=== PATIENT | male | born 1975 | race Caucasian/White ===

== ENCOUNTER 2016-11-20 07:10 | Observation (INO) | payer OTHER ==
[~2016-11-20] VITALS: Ht 190.5 cm; Wt 92.1 kg
[2016-11-20] VITALS (9 sets, daily range): BP systolic 97–136; BP diastolic 63–73; PULSE 66–84; RESP 16–17; O2SAT 97–100
[~2016-11-20 07:10] MED LIST: BACI1CAP6 PO; CHOL10008 PO; Lactated Ringer's 1,000 ML IV ONE; PAPA1TAB10 PO
[2016-11-20] MEDS ORDERED: Lactated Ringer's 500 ML IV PRN (07:34)
[2016-11-20] MEDS ORDERED: Lactated Ringer's 1,000 ML IV SCH (07:34)
--- NOTE | 2016-11-20 07:34 | PCM.HPANE ---
Patient Data Surgeon Admitting Provider: Attending Provider:Gerard Ledbetter MD Primary Care Physician:Tru Kennedy DO Other Provider:Manish Boykin Anesthesia Reason for Visit Diarrhea In Adult Ht/WT & BMI Body Mass Index Allergies Coded Allergies: levofloxacin (Verified Allergy, Unknown, 11/18/16) Past Anesthesia History Anesthesia History: Denies:: Abnormal Airway, Anesthesia Reactions, Difficult Intubation Diabetes History Hx Diabetes?: No MRSA MRSA: No Medications Hypertension Medication: No Home Meds Incl Beta Aimee: No Reported Medications Cholecalciferol (Vitamin D3) (Vitamin D3)1,000 Unit Tab.chew1,000 Unit PO DAILY 11/18/16 Bacillus Coagulans (Probiotic)10 Billion Cell Capsule.dr10 Each PO DAILY 11/18/16 Papaya (Papaya Enzyme)1 Each Tablet1 Each PO DAILY 11/18/16 History History of ENT Problems?: No HEENT History: Denies:: Abnormal Airway Cataracts Difficult Intubation Dysphagia Glaucoma Hearing Problem Sinus Problem TMJ Denture Type: None Teeth Condition: Within Normal Limits Hx of Heart Problems?: No Cardiovascular History: Denies:: AICD Abdominal Aortic Aneurism Atrial Fibrillation Cardiac Surgery Chest Pain Congestive Heart Failure Coronary Artery Disease Edema Heart Murmur Hypertension Irregular Heartbeat Pacemaker Peripheral Vascular Rheumatic Fever Thrombophlebitis Valvular Heart Disease Hx of Respiratory Problem?: No Respiratory History: Denies:: Asthma COPD Chest Surgery Cough Dyspnea Emphysema Hemoptysis Oxygen Administration Pneumonia Pulmonary Embolism Tuberculosis Use of C-PAP Machine Use of Inhalers / NEBS Hx Neurologic Problems?: No Neurological History: Denies:: Alzheimer's Disease CVA Dementia Dizziness Headaches Multiple Sclerosis Parkinson's Disease Peripheral Neuropathy Seizures TIA Hx of GI Problems?: Yes Gastrointestinal History: Positive for:: Heartburn Hx of Problems?: No HX of Peritoneal Dialysis: No Male Hx: Denies:: Prostate Problems Scrotal Mass Testicular Surgery Hx Musculoskeletal Problems?: No Hx of Psycho/Social Problems?: No Hx Surgeries?: No Hx Any Other Health Problems?: No Hx Diabetes: No Stop/Bang Treated for Sleep Apnea?: No Do You Have a CPAP Machine?: No MIGUEL ÁNGEL Risk Assessment: Low Risk, <3 Yes Risk Assessment Category Category 1A: Patient has history of documented sleep apnea, and HAS NOT received any narcotic, sedative or anesthesia administration during this stay. Category 1B: Patient has history of documented sleep apnea, and HAS received any narcotic , sedative or anesthesia administration during this stay Category 2: Patient has SUSPECTED Obstructive Sleep Apnea, and HAS received any narcotic , sedative or anesthesia administration during this stay. Category 3: Patient has SUSPECTED Obstructive Sleep Apnea and HAS NOT received narcotic, sedative or anesthesia administration during this stay. Category 4: Outpatient in Procedural Areas with known sleep apnea or who screen positive for High Risk via the STOP/BANG questionnaire. Exam Exam General Appearance: Alert, Oriented X3, Cooperative, No Acute Distress HEENT/AIRWAY: MP 2 Lungs: Clear to Auscultation, Normal Air Movement Heart: Exam Unremarkable, Regular Rate/Rhythm, No Murmurs/Rubs/Gallops Plan Impression Patient chart reviewed, patient interviewed and anesthestic plan with risks, benefits, and alternatives discussed, and informed consent obtained. ASA Physical Status: ASA2 Mod Systemic Disease Anesthetic Plan: MAC Bene/Risks/Altern/Consents: Yes HP Complete Prior to Induction: Yes Dino Hwoard MD Nov 20, 2016 07:34
[2016-11-20] MEDS ORDERED: fentaNYL-PF 50 mCg/mL 2 mL Inj IVPUSH PRN (07:35)
[2016-11-20] MEDS ORDERED: MetoCLOpramide 5 mg/mL 2 mL Inj IVPUSH PRN (07:35)
[2016-11-20] MEDS ORDERED: EPHEDrine Sulfate 50 mg/mL Inj IVPUSH PRN (07:35)
[2016-11-20] MEDS ORDERED: Ondansetron 2 mg/mL 2 mL Inj IVPUSH PRN (07:35)
[2016-11-20] MEDS ORDERED: HYDROmorphone 1 mg/mL Inj IVPUSH PRN (07:35)
[2016-11-20] MEDS ORDERED: Phenylephrine 10,000 mCg/mL Inj IVPUSH PRN (07:35)
[2016-11-20] MEDS ORDERED: Dexamethasone 4 mg/mL Inj IVPUSH PRN (07:35)
--- NOTE | 2016-11-20 08:20 | PCM.ENDEGD ---
EGD Date of Service: Nov 20, 2016 Physician Gerard Ledbetter MD Pre Procedure Diagnosis: Reflux globus sensation Post Procedure Dx & Findings: Esophagitis gastritis Procedure Esophagogastroduodenoscopy PROCEDURE IN DETAIL: Anesthesia done by anesthesiologist. After proper sedation, Olympus video endoscope was inserted into patient's mouth and esophagus was successfully intubated. Scope introduced esophagus. Esophagus showed normal shiny whitish mucosa consistent with squamous cell component. Z line was at 40 cm from the incisors. Esophagus showed edema and inflammation and erosion consistent with esophagitis. Biopsies of the erosion and inflammation were done. Scope further advanced to the stomach. Stomach showed redness irritation erosion consistent with gastritis. Biopsies are done in these areas. Patient also had 1 mm fundic polyp. This was biopsied.. Cardia fundus body antrum pylorus were all visualized. Retroflexion was done. Stomach was easily inflated and deflatable using air. Scope further advanced to the distal duodenum. Duodenum revealed normal villous structures with normal appearing folds without any mass ulcer erosion. Impression Esophagitis Gastritis Recommendation Prilosec 20 once a day Avoid NSAIDs Presedation Assessment Risks and Benefits Informed consent was obtained from the patient after all risks and benefits including but not limited to drug reaction, infection, pain, bleeding, perforation, as well as alternatives were discussed. Patient monitoring Continuous pulse oximetry, cardiac monitoring, blood pressure monitoring, IV access, and oxygen at 2L per nasal cannula. Complications There were no periprocedural complications identified. Post Procedure Plan Post Procedure Recommendations 1. Restrict activities today. 2. Resume normal activities in the morning. 3. Resume medications. 4. GERD behavioral modification: - Avoid fatty, acidic, spicy, large meals - Do not lie down after meals - Do not eat or drink anything for at least 2 1/2 hours before going to bed at night - Discontinue tobacco and alcohol - Decrease or avoid caffeine - Avoid chocolate and mints - Decrease weight - Avoid aspirin and non steroidal anti-inflammatory agents (NSAID) such as Aleve, Advil, Mobic, Naproxen, Ibuprofen, etc 5. Add proton pump inhibitor. Take 30 minutes before 1st meal of the day. 6. Patient informed of normal post procedure side effects as bloating, drowsiness, blood streaking in the stool 7. If gastric biopsy reveal H.pylori, continue with appropriate treatment 8. If small bowel biopsy reveals celiac, continue with appropriate treatment 9. Please don't hesitate to call me with any questions Gerard Ledbetter MD Nov 20, 2016 08:19
--- NOTE | 2016-11-20 08:41 | PCM.ENDCOL ---
Colonoscopy Date of Service: Nov 20, 2016 Physician Gerard Ledbetter MD Pre Procedure Diagnosis: Diarrhea Post Procedure Dx & Findings: Diverticuli hemorrhoids Procedure Colonoscopy PROCEDURE IN DETAIL: Sedation by anesthesiologist Prep adequate Withdrawal time 10 minutes After unremarkable rectal examination the Olympus video colonoscope was inserted patient's anal canal and was advanced to cecum. Landmarks were identified including the ileocecal valve and appendiceal orifice. Scope was further advanced the terminal ileum. We advanced 10 cm. Visualized colon terminal ileum showed normal healthy mucosa with normal appearing villous structures. Scope was withdrawn systematically. Visualized colonic mucosa showed healthy shiny mucosa with normal healthy-appearing vasculature. Small several diverticula noted in the sigmoid colon. Random biopsies were taken from the cecum to the rectum for workup of diarrhea. In the rectum retroflexion was done which showed hemorrhoids. Anal canal was inspected carefully on the way out and hemorrhoids noted. Impression Normal TI Random biopsies Hemorrhoids Recommendation Repeat colonoscopy when patient turns 48 years old. Diverticular diet Presedation Assessment Risks and Benefits Informed consent was obtained from the patient after all risks and benefits including but not limited to drug reaction, infection, pain, bleeding, perforation, as well as alternatives were discussed. Patient monitoring Continuous pulse oximetry, cardiac monitoring, blood pressure monitoring, IV access, and oxygen at 2L per nasal cannula. Complications There were no periprocedural complications identified. Post Procedure Plan Post Procedure Recommendations 1. Restrict activities today. 2. Resume normal activities in the morning. 3. Resume medications. 4. Patient informed of normal post procedure side effects as bloating, drowsiness, blood streaking in the stool. 5. average risk CRCS. If colon polyps come back as: -Hyperplastic- can repeat colonoscopy in 10 years -Tubular adenoma- repeat colonoscopy in 5 years -Tubulovillous/villous adenoma- repeat colonoscopy in 3 years -If any dysplasia- return to clinic as soon as possible 6. Please don't hesitate to call me with any questions. Gerard Ledbetter MD Nov 20, 2016 08:41
[2016-11-20] MEDS ORDERED: Ketamine 10 mg/mL 20 mL Inj ONE (11:14)
[2016-11-20] MEDS ORDERED: Propofol 10,000 mCg/mL 20 mL Inj ONE (11:14)
--- NOTE | 2016-11-20 11:25 | NUR ---
Admit Patient arrived to room 250-2 via wheelchair from [facility]. Patient ambulated to bed, steady on feet. No IV access, prior order ok'd to leave patient w/no IV access. Patient oriented to room and plan of care. Patient denies nausea or pain.
[2016-11-20] MEDS ORDERED: Alum-Mag Hydrox-Simeth 30 mL Suspension PO PRN (13:05)
[2016-11-20] MEDS ORDERED: Polyethylene Glycol (PEG) 17 Gm Powder PO PRN (13:05)
--- NOTE | 2016-11-20 14:12 | PCM.HPMED ---
Subjective Date of Service Nov 20, 2016 Primary Provider: Admitting Physician: Primary Care Physician: Tru Kennedy DO Attending Physician: Gerard Ledbetter MD Admit Status: 23-Hour Observation Chief Complaint: Chronic abdominal pain and diarrhea History of Present Illness: Abdi Sheth is a 41-year-old male with a history of GERD, depression, and anxiety who presented to [facility] for colonoscopy and EGD to further evaluate his chronic abdominal pain and diarrhea. He presented to the Gastroenterology clinic in August of this year with a five month history of bloating, constant heartburn and a significant globus sensation. Additionally he noted a long standing history of abdominal pain with cramping and diarrhea. He reports a previous evaluation in [facility] where he was told after an EGD and colonoscopy failed to identify a cause for his symptoms that he likely had irritable bowel syndrome. He does have a history of depression and anxiety but he symptoms have worsened and he feels that his mood is stable. Admitted for overnight observation post endoscopy for recovery following anesthesia. Review of Systems: A comprehensive review of systems was conducted with the patient and found to be negative except as above in the History of Present Illness. Allergies Coded Allergies: levofloxacin (Verified Allergy, Unknown, 11/18/16) Home Medications NONE PMH GERD Spontaneous pneumothorax Degenerative disc disease Depression Anxiety Chronic abdominal pain Diarrhea Lateral epicondylitis, right elbow . Surgical History Vasectomy Family History Father- Cardiovascular disease. Social History Hx Alcohol Use: Yes (once every other week) Hx Substance Use: No Hx Tobacco Use: Yes Smoking Status: Former Smoker Living Arrangement: with Family Exam Vital Signs Vital Sign - Last Date Time Temp Pulse Resp B/P Pulse Ox O2 Delivery O2 Flow Rate FiO2 11/20/16 08:40 72 16 136/67 100 Room Air Exam General: Well appearing male in no acute distress. Communicating appropriately. HEENT: Normocephalic, atraumatic. PERRLA, Anicteric sclerae. Mucous membranes moist/pink Lungs: Clear to auscultation bilaterally with no wheezing or crackles Cardiovascular: Regular rate/rhythm. No murmurs Abdomen: Soft, npndistended, nontender, no masses. Hypoactive bowel tones. Extremities: No edema. Neurological: AOx3, no focal deficits. Normal speech Psychiatric: Normal mood and affect. Lab and Diagnostics Additional Diagnostics: Nov 20, 2016- COLONOSCOPY IMPRESSION: Normal TI Random biopsies Hemorrhoids RECOMMENDATION: Repeat colonoscopy when patient turns 48 years old. Diverticular diet Post Procedure Recommendations 1. Restrict activities today. 2. Resume normal activities in the morning. 3. Resume medications. 4. Patient informed of normal post procedure side effects as bloating, drowsiness, blood streaking in the stool. 5. average risk CRCS. If colon polyps come back as: -Hyperplastic- can repeat colonoscopy in 10 years -Tubular adenoma- repeat colonoscopy in 5 years -Tubulovillous/villous adenoma- repeat colonoscopy in 3 years -If any dysplasia- return to clinic as soon as possible 6. Please don't hesitate to call me with any questions. Gerard Ledbetter MD Nov 20, 2016 - EGD IMPRESSION: Esophagitis Gastritis RECOMMENDATION: Prilosec 20 once a day Avoid NSAIDs Post Procedure Recommendations 1. Restrict activities today. 2. Resume normal activities in the morning. 3. Resume medications. 4. GERD behavioral modification: - Avoid fatty, acidic, spicy, large meals - Do not lie down after meals - Do not eat or drink anything for at least 2 1/2 hours before going to bed at night - Discontinue tobacco and alcohol - Decrease or avoid caffeine - Avoid chocolate and mints - Decrease weight - Avoid aspirin and non steroidal anti-inflammatory agents (NSAID) such as Aleve, Advil, Mobic, Naproxen, Ibuprofen, etc 5. Add proton pump inhibitor. Take 30 minutes before 1st meal of the day. 6. Patient informed of normal post procedure side effects as bloating, drowsiness, blood streaking in the stool 7. If gastric biopsy reveal H.pylori, continue with appropriate treatment 8. If small bowel biopsy reveals celiac, continue with appropriate treatment 9. Please don't hesitate to call me with any questions Gerard Ledbetter MD Assessment & Plan 41-year-old male with a history of GERD, depression, and anxiety who presented to [facility] for colonoscopy and EGD for further evaluation of chronic abdominal pain and diarrhea. EGD and colonoscopy significant for gastritis as well as esophagtitis and hemorrhoids. -Restrict activities today, advance as tolerated and resume normal activities in the morning. -Protonix 20mg once a day.Take 30 minutes before 1st meal of the day. -Avoid NSAIDs -GERD behavioral modification: - Avoid fatty, acidic, spicy, large meals - Do not lie down after meals - Do not eat or drink anything for at least 2 1/2 hours before going to bed at night - Discontinue tobacco and alcohol - Decrease or avoid caffeine - Avoid chocolate and mints - Decrease weight - Avoid aspirin and non steroidal anti-inflammatory agents (NSAID) such as Aleve, Advil, Mobic, Naproxen, Ibuprofen, etc -If gastric biopsy reveal H.pylori, continue with appropriate treatment -If small bowel biopsy reveals celiac, continue with appropriate treatment -Repeat colonoscopy when patient turns 48 years old. Disposition: Patient admitted for observation following uncomplicated EGD and colonoscopy for post procedure monitoring following anesthesia. Will likely discharge tomorrow. Advance diet and activity as tolerated. Pain Evaluation: Adequate Pain Control Resuscitation Status: CPR: Attempt Resuscitation Yuko Crocker DO Nov 20, 2016 08:46 Yuko Crocker DO Nov 20, 2016 08:46 Yuko Crocker DO Nov 20, 2016 08:46
[2016-11-21 01:24] VITALS: BP 118/69; PULSE 68; RESP 17; O2SAT 97
[2016-11-21 06:12] VITALS: BP 120/64; PULSE 77; RESP 17; O2SAT 97
--- NOTE | 2016-11-21 06:17 | NUR ---
Shift Note Pt. stable, denies any discomfort this shift, call light in reach at all times, hourly checks, will continue to monitor.
--- NOTE | 2016-11-21 07:58 | NUR ---
Social Work: Screening D: EMR reviewed. Pt is a 41 y/o male admitted [facility] - no readmit risk score assigned - for adult diarrhea per H&P. Pt's insurance is [employer] and PCP is Tru Kennedy DO. Pt's NOK is mother Linsey Maya. Pt lives at home with family in [place]. Pt does not screen in for full assessment. SW will discuss pt in multidisciplinary rounds to address any potential SW discharge planning needs. SW will to follow-up with pt regarding DPOA/advanced directive ppw and determine transportation plan at discharge. SW will continue to follow. A: Per EMR, pt who is independent at baseline and has capacity for self-care. P: Pt likely to discharge home via POV. SW will to follow-up with pt regarding DPOA/advanced directive ppw and determine transportation plan at discharge. SW will continue to follow. AMINATA Mai
--- NOTE | 2016-11-21 08:55 | PCM.DIMED ---
Discharge Instructions Date of Service Nov 21, 2016 Dates of Hospitalization Nov 20, 2016 at 09:53 Discharge Diagnosis Discharge Diagnosis Gastritis and esophagitis (Inflammation of stomach lining as well as the lining in your esophagus) Hemorrhoids Medication Instructions Additional med instructions Start taking Protonix (pantoprazole) 20mg by mouth once daily Patient Instructions Patient Instructions -Protonix 20mg once a day.Take 30 minutes before 1st meal of the day. -Lifestyle modifications to help prevent gastroesophageal reflux: - Avoid fatty, acidic, spicy, large meals - Do not lie down after meals - Do not eat or drink anything for at least 2 1/2 hours before going to bed at night - Discontinue tobacco and alcohol - Decrease or avoid caffeine - Avoid chocolate and mints - Avoid aspirin and non steroidal anti-inflammatory agents (NSAID) such as Aleve, Advil, Mobic, Naproxen, Ibuprofen, etc -Repeat colonoscopy at age 48. -Followup with Dr. Ledbetter with GI in 6-8 weeks Contact your doctor if: -You have belly pain that gets worse or doesn't go away -You vomit blood or have black bowel movements -You are losing weight (without trying to) . Follow-up Provider: Tru Kennedy DO Follow-up with PCP in: 4 weeks Provider: Gerard Ledbetter MD Follow-up in: 6 weeks Yuko Crocker DO Nov 21, 2016 08:55
[2016-11-21] MEDS ORDERED: PANT40TA2 PO (08:56)
--- NOTE | 2016-11-21 09:26 | PCM.ANEP1 ---
Post Anesthesia PACU Phase 1 Assessment Vital Signs Vital Signs Date Time Temp Pulse Resp B/P Pulse Ox O2 Delivery O2 Flow Rate FiO2 11/21/16 06:12 36.7 77 17 120/64 97 Room Air Anesthetic Administered: MAC Level of Alertness: Awake, talking MESSER's with Equal Strength: No Pain: No Nausea or Vomiting: Yes CV Function & Hydration Stable: Yes Airway Device: none Lungs: Clear to Auscultation, Normal Air Movement Dermatome Level: Full Sensation PACU Phase 2 Assessment Complications: No Follow up Care: No Patient Instructions Provided: Yes Dino Howard MD Nov 21, 2016 09:26
--- NOTE | 2016-11-21 10:56 | PCM.DC.MED ---
Discharge Summary Date of Service Nov 21, 2016 Dates of Hospitalization Date of Hospital Admission Nov 20, 2016 at 09:53 Date of Discharge: Nov 21, 2016 Providers: Admitting Physician: Gerard Ledbetter MD Primary Care Physician: Tru Kennedy DO Attending Physician: Gerard Ledbetter MD Diagnosis at Time of Discharge Diagnosis at Time of Discharge Gastritis and esophagitis Hemorrhoids Procedures Other Diagnostics Nov 20, 2016- COLONOSCOPY IMPRESSION: Normal TI Random biopsies Hemorrhoids RECOMMENDATION: Repeat colonoscopy when patient turns 48 years old. Diverticular diet Post Procedure Recommendations 1. Restrict activities today. 2. Resume normal activities in the morning. 3. Resume medications. 4. Patient informed of normal post procedure side effects as bloating, drowsiness, blood streaking in the stool. 5. average risk CRCS. If colon polyps come back as: -Hyperplastic- can repeat colonoscopy in 10 years -Tubular adenoma- repeat colonoscopy in 5 years -Tubulovillous/villous adenoma- repeat colonoscopy in 3 years -If any dysplasia- return to clinic as soon as possible 6. Please don't hesitate to call me with any questions. Gerard Ledbetter MD Nov 20, 2016 - EGD IMPRESSION: Esophagitis Gastritis RECOMMENDATION: Prilosec 20 once a day Avoid NSAIDs Post Procedure Recommendations 1. Restrict activities today. 2. Resume normal activities in the morning. 3. Resume medications. 4. GERD behavioral modification: - Avoid fatty, acidic, spicy, large meals - Do not lie down after meals - Do not eat or drink anything for at least 2 1/2 hours before going to bed at night - Discontinue tobacco and alcohol - Decrease or avoid caffeine - Avoid chocolate and mints - Decrease weight - Avoid aspirin and non steroidal anti-inflammatory agents (NSAID) such as Aleve, Advil, Mobic, Naproxen, Ibuprofen, etc 5. Add proton pump inhibitor. Take 30 minutes before 1st meal of the day. 6. Patient informed of normal post procedure side effects as bloating, drowsiness, blood streaking in the stool 7. If gastric biopsy reveal H.pylori, continue with appropriate treatment 8. If small bowel biopsy reveals celiac, continue with appropriate treatment 9. Please don't hesitate to call me with any questions Gerard Ledbetter MD Brief History Per admission history and physical. November 20, 2016 Abdi Sheth is a 41-year-old male with a history of GERD, depression, and anxiety who presented to [facility] for colonoscopy and EGD to further evaluate his chronic abdominal pain and diarrhea. He presented to the Gastroenterology clinic in August of this year with a five month history of bloating, constant heartburn and a significant globus sensation. Additionally he noted a long standing history of abdominal pain with cramping and diarrhea. He reports a previous evaluation in [facility] where he was told after an EGD and colonoscopy failed to identify a cause for his symptoms that he likely had irritable bowel syndrome. He does have a history of depression and anxiety but he symptoms have worsened and he feels that his mood is stable. Admitted for overnight observation post endoscopy for recovery following anesthesia. Hospital Course 41-year-old male with a history of GERD, depression, and anxiety who presented to [facility] for colonoscopy and EGD for further evaluation of chronic abdominal pain and diarrhea. EGD and colonoscopy significant for gastritis as well as esophagtitis and hemorrhoids. -Patient was admitted to the [facility] for observation following EGD and colonoscopy which required anesthesia. His activities and diet were advanced as tolerated and he was back to pre-admission baseline at the time of discharge. Exam Vital Signs (Last) Date Time Temp Pulse Resp B/P Pulse Ox O2 Delivery O2 Flow Rate FiO2 11/21/16 06:12 36.7 77 17 120/64 97 Room Air Exam General: Well appearing male in no acute distress. Communicating appropriately. HEENT: Normocephalic, atraumatic. PERRLA, Anicteric sclerae. Mucous membranes moist/pink Lungs: Clear to auscultation bilaterally with no wheezing or crackles Cardiovascular: Regular rate/rhythm. No murmurs Abdomen: Soft, npndistended, nontender, no masses. Hypoactive bowel tones. Extremities: No edema. Neurological: AOx3, no focal deficits. Normal speech Psychiatric: Normal mood and affect. Discharge Medications Discharge Medications Bacillus Coagulans (Probiotic) 10 Billion Cell Capsule.dr 10 EACH PO DAILY ( Reported) Cholecalciferol (Vitamin D3) (Vitamin D3) 1,000 Unit Tab.chew 1,000 UNIT PO DAILY (Reported) Pantoprazole DR (Protonix) 40 Mg Tablet 20 MG PO DAILY Prescribed by: MILEY GREWAL DO Papaya (Papaya Enzyme) 1 Each Tablet 1 EACH PO DAILY (Reported) Additional med instructions Start taking Protonix (pantoprazole) 20mg by mouth once daily Followup Plan Disposition: Patient discharged home in stable condition following EGD and colonoscopy. Patient Instructions -Protonix 20mg once a day.Take 30 minutes before 1st meal of the day. -Lifestyle modifications to help prevent gastroesophageal reflux: - Avoid fatty, acidic, spicy, large meals - Do not lie down after meals - Do not eat or drink anything for at least 2 1/2 hours before going to bed at night - Discontinue tobacco and alcohol - Decrease or avoid caffeine - Avoid chocolate and mints - Avoid aspirin and non steroidal anti-inflammatory agents (NSAID) such as Aleve, Advil, Mobic, Naproxen, Ibuprofen, etc -Repeat colonoscopy at age 48. -Followup with Dr. Ledbetter with GI in 6-8 weeks Contact your doctor if: -You have belly pain that gets worse or doesn't go away -You vomit blood or have black bowel movements -You are losing weight (without trying to) . Follow-up Provider: Tru Kennedy DO Follow-up with PCP in: 4 weeks Provider: Gerard Ledbetter MD Follow-up in: 6 weeks copies to: Tru Kennedy DO Miley Grewal DO Nov 21, 2016 08:57
--- NOTE | 2016-11-21 11:12 | NUR ---
Social Work: Readiness for Discharge/Multidisciplinary Rounds D: EMR reviewed. Pt is on day 1 of hospitalization. Pt discussed in multidisciplinary rounds - per MD, pt is medically stable for discharge home via POV. SW met with pt and provided DPOA/advanced directive ppw and instruction booklet. SW encouraged pt to provide a copy to the hospital once complete. No SW need identified. No MD orders received. SW will continue to follow. A: Pt who is independent at baseline. P: SW met with pt at bedside and confirmed he will provide transport home today via POV. SW discussed discharge plan and confirmed pt feels safe with discharge plan and has no discharge needs. SW will continue to follow. AMINATA Mai
--- NOTE | 2016-11-21 11:15 | NUR ---
Social Work: Discharge D: EMR reviewed. Pt is on day 1 of hospitalization. Pt discussed in multidisciplinary rounds - per MD, pt is medically stable for discharge home via POV. No SW need identified. No MD orders received. Pt discharged home via POV - RN helped pt ambulate to car. No discharge needs identified. A: Pt who is independent at baseline. P: Pt discharged home via POV. SW discussed discharge plan and confirmed pt feels safe with discharge plan and has no discharge needs. AMINATA Mai
--- NOTE | 2016-11-21 11:17 | NUR ---
Discharge Patient ambulated off floor at 1115, declined wheelchair. All discharge information discussed with patient including medications and follow up appointments. All belongings left with patient.
--- NOTE | 2016-11-26 11:06 | PATH ---
SURGICAL PATHOLOGY Attending Physician:Gerard Ledbetter M.D. CASE STATUS: Signed Out PATIENT NAME: BECKI ESTRADA PID: [id number] : 1975 DATE COLLECTED:11/20/2016 21:52 SPECIMEN: 1: Esophagus, Biopsy 2: Stomach, Polyp, Biopsy 3: Gastric, Biopsy 4: Colon, Biopsy CLINICAL HISTORY: 1). ESOPHAGUS BIOPSY 2). FUNDAL POLYP BIOPSY 3). GASTRIC BIOPSY, RULE OUT H.PYLORI 4). RANDOM COLON BIOPSY FINAL DIAGNOSIS: 1.ESOPHAGUS, BIOPSY: SQUAMOCOLUMNAR JUNCTIONAL MUCOSA WITH CHRONIC ACTIVE INFLAMMATION OF THE GLANDULAR MUCOSA. Negative for intestinal metaplasia. Negative for dysplasia and malignancy. 2.FUNDAL POLYP, BIOPSY: GASTRIC BODY-TYPE MUCOSA WITH FEW DIALTED GLANDS CONSISTENT WITH FUNDIC GLAND POLYP. Negative for intestinal metaplasia. Negative for dysplasia and malignancy. Negative for Helicobacter pylori by immunohistochemistry. 3.GASTRIC BIOPSY: GASTRIC BODY-TYPE AND ANTRAL-TYPE MUCOSA WITH CHRONIC GASTRITIS. Negative for Helicobacter pylori by immunohistochemistry. Negative for intestinal metaplasia. Negative for dysplasia and malignancy. 4.RANDOM COLON BIOPSY: MULTIPLE FRAGMENTS OF COLONIC MUCOSA WITH BENIGN LYMPHOID AGGREGATES AND EVIDENCE OF MELANOSIS COLI IN FEW FRAGMENTS. No evidence of active, chronic, and microscopic colitis. Negative for dysplasia and malignancy. ICD10 K57.30 GROSS DESCRIPTION: Received four formalin-filled containers, each labeled with the patient' s name. 1. Received in formalin, labeled with the patient' s name and "esophagus biopsy", are two fragments of irving, soft tissue ranging from 0.2 x 0.1 x 0.1 cm to 0.3 x 0.1 x 0.1 cm. The fragments are totally submitted in cassette 1A. 2. Received in formalin, labeled with the patient' s name and "fundal polyp", is one fragment of irving, soft tissue measuring 0.2 x 0.1 x 0.1 cm. The fragment is totally submitted in cassette 2A. 3. Received in formalin, labeled with the patient' s name and "gastric biopsy", are two fragments of irving, soft tissue ranging from 0.3 x 0.2 x 0.1 cm to 0.7 x 0.2 x 0.1 cm. The fragments are totally submitted in cassette 3A. 4. Received in formalin, labeled with the patient' s name and "random colon biopsy", are multiple fragments of irving, soft tissue ranging from 0.2 x 0.1 x 0.1 cm to 0.4 x 0.1 x 0.1 cm. The fragments are totally submitted in cassette 4A. [id number]) MICRO DESCRIPTION: An immunohistochemical stain is performed on parts 2 and 3 to evaluate for Helicobacter pylori microorganisms. The control stains show appropriate reactivity. This test was developed and its performance characteristics determined by [facility]. It has not been cleared or approved by the [place]. Food and Drug Administration. The FDA has determined that such clearance or approval is not necessary. This test is used for clinical purposes. It should not be regarded as investigational or for research. ICD-9 CODES: CPT CODES: 1: 91445 2: 56795, 96023 3: 03417, 45686 4: 90759 Electronically Signed Out Alessandro Cullen MD [facility] Pathology [facility], [place] [address] Technical component performed at [facility], [facility] [address], [place], [address]
== END 2016-11-21 11:15 | disposition home or self-care (01) ==
LOC: END 07:10 → MOC 09:53
PROVIDERS: ADMIT Internal Medicine; ATTEND Internal Medicine
DX: K29.50 Unspecified chronic gastritis without bleeding (principal); K20.9 Esophagitis, unspecified; K31.7 Polyp of stomach and duodenum; K57.30 Diverticulosis of large intestine without perforation or abscess without bleeding; K64.9 Unspecified hemorrhoids; R19.7 Diarrhea, unspecified; R10.9 Unspecified abdominal pain; K21.9 Gastro-esophageal reflux disease without esophagitis; F41.8 Other specified anxiety disorders; M51.36 Other intervertebral disc degeneration, lumbar region; Z87.891 Personal history of nicotine dependence
CPT/HCPCS: 43239; 45380; G0378; J2704; J7120